=== PATIENT | female | born 1950 | race African-American/Black ===

== ENCOUNTER 2021-11-18 20:46 | Observation (INO) | payer MEDICARE, MEDICAID, SELFPAY ==
[2021-11-18] VITALS (7 sets, daily range): BP systolic 130–173; BP diastolic 80–89; PULSE 73–88; RESP 16; TEMP 36.8; O2SAT 98–100; BMI 37.1
--- NOTE | 2021-11-18 20:48 | ECG_ITS ---
APPROVED REPORT Exam: Resting ECG HR:73 bpm ECG Measurements Heart Rate 73 AXES NH 178 P 49 QRSd 96 QRS -27 QT 400 T 47 QTc 426 Conclusion SINUS RHYTHM WITH OCCASIONAL VENTRICULAR PREMATURE COMPLEXES BORDERLINE LEFT AXIS DEVIATION [QRS AXIS < -20] BORDERLINE ECG UNCONFIRMED REPORT Electronically signed by : Aguilar Hatch MD 11/19/2021 20:36:43
--- NOTE | 2021-11-18 20:55 | XR_ITS ---
PROCEDURE INFORMATION: Exam: XR Chest Exam date and time: 11/18/2021 9:29 PM Age: 71 years old Clinical indication: Shortness of breath; Additional info: SOA TECHNIQUE: Imaging protocol: Radiologic exam of the chest. Views: 1 view. COMPARISON: No relevant prior studies available. FINDINGS: Lungs: Limited inspiration and penetration of the chest with obese body habitus. No consolidation. No evidence of pulmonary vascular congestion. There is a 9 mm calcified granuloma within the peripheral aspect of the left mid lung field. Pleural spaces: Unremarkable. No pleural effusion. No pneumothorax. Heart/Mediastinum: No cardiomegaly. Atheromatous calcification of the thoracic aorta. The superior mediastinum is not widened. 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 Prominent narrowing of the acromioclavicular joint spaces. There are degenerative changes of the thoracic spine. IMPRESSION: No acute intrathoracic disease.
[2021-11-18 21:21] LABS: Microscopic, Urine URINE MICROSCOPIC (MICROSCOPIC)
--- NOTE | 2021-11-18 21:26 | PC.NURSE ---
speaking with Dr. Feliciano.
--- NOTE | 2021-11-18 21:28 | PC.NURSE ---
Dr. Lan s/w Dr. Feliciano
[2021-11-18 21:29] LABS: Appearance,Urine CLEAR (Clear); Bilirubin,Urine Negative (Negative); Blood, Urine TRACE-I (Negative); Color,Urine YELLOW (Yellow); Glucose,Urine (UA) Negative (Negative); Ketones,Urine Negative (Negative); Leukocyte Esterase,Urine Negative (Negative); Nitrate,Urine Negative (Negative); Protein,Urine Negative (Negative); Specific Gravity, Urine <= 1.005 (1.005-1.030); Urobilinogen,Urine 0.2 EU/dl (0.2)
[2021-11-18 21:33] LABS: WBC,Urine Occasional #/hpf (0-3)
[2021-11-18 21:46] LABS: Basophils % 0.5 % (0.1-2.0); Eosinophils # 0.1 K/mm3 (0.0-0.4); Hematocrit 44.3 % (37.0-47.0); Hemoglobin 13.6 g/dL (12.2-16.2); Lymphocytes # 1.1 K/mm3 (0.7-4.5); Lymphocytes % 13.1 % (10-50); Mean Corpuscular HGB Conc 30.7 g/dL (31.8-35.4); Mean Corpuscular Hemoglobin 27.7 pg (27.0-31.2); Mean Corpuscular Volume 90.1 fl (81-99); Mean Platelet Volume 8.9 fl (7.4-10.4); Monocytes # 0.2 K/mm3 (0.1-1.0); Monocytes % 2.4 % (1.7-9.3); Platelet Count 241 K/mm3 (142-424); Red Blood Count 4.91 M/mm3 (4.20-5.40); Red Cell Distribution Width 14.5 % (11.5-17.5); White Blood Count 8.4 K/mm3 (4.8-10.8)
[2021-11-18 21:48] LABS: Chloride 107 mmol/L (98-107); Potassium 4.4 mmoL/L (3.5-5.1); Sodium 139 mmol/L (136-145)
--- NOTE | 2021-11-18 21:48 | PC.NURSE ---
Rounded on pt at this time. Daughter at bedside. Updated them on POC. Assisted pt to use BSC. Pt placed back in bed and resp arrived to administer breathing treatment. Pt has no other needs.
[2021-11-18 21:50] LABS: Blood Urea Nitrogen 21 mg/dl (7-17)
[2021-11-18 21:51] LABS: Alanine Aminotransferase 90 U/L (12-78); Albumin Level 4.4 g/dl (3.5-5.0); Alkaline Phosphatase 97 U/L (38-126); Anion Gap 14.4 mEq/L (5-15); Aspartate Amino Transferase 90 U/L (14-36); Calcium 9.4 mg/dl (8.4-10.2); Carbon Dioxide 22 mmol/L (22.0-30.0); Creatinine Clearance Estimated 83 mL/min (50-200); Estimated Glomerular Filt Rate 54 ml/min (>60); GFR (African American) 66 ML/MIN (>60); Glucose 147 mg/dl (74-100); Total Protein,Serum 7.8 g/dl (6.3-8.2)
[2021-11-18 21:52] LABS: Activated Partial Thrombo Time 26.5 seconds (22.8-30.6); INR 1.01 (0.9-1.1); Magnesium 1.8 mg/dl (1.6-2.3); Prothrombin Time 11.4 seconds (10.1-12.5)
[2021-11-18 21:53] LABS: Bilirubin,Direct < 0.1 mg/dl (0.0-0.4); Bilirubin,Total < 0.1 mg/dl (0.2-1.3)
--- NOTE | 2021-11-18 21:54 | HMH.EDGENADL ---
ED Disposition Clinical Impression: New onset a-fib, COPD exacerbation Disposition: Admitted As Inpatient Condition on Discharge: Good - Critical Care Critical Care Time: No Attestation: On 11/18/21, the high probability of a clinically significant, sudden or life threatening deterioration of the following system(s) required my full and direct attention, intervention and personal management. The time I documented below is in addition to time spent performing reported procedures but includes the following listed in this critical care notation. Medical Decision Making - Watson Inquiry Pt receiving controlled substance: No Vital Signs: 11/18/21 20:46 11/18/21 21:30 11/18/21 22:00 Temperature 98.3 F Temperature Source Oral Pulse Rate 81 78 Pulse Rate [Right] 73 Respiratory Rate 16 Blood Pressure 152/80 H 171/88 H Blood Pressure [Right Arm] 130/89 Blood Pressure Mean [Right Arm] 102 Blood Pressure Source Blood Pressure Source [Right Arm] Automatic Cuff Blood Pressure Position Blood Pressure Position [Right Arm] Sitting 02 Sat by Pulse Oximetry 98 100 99 Oxygen Delivery Method Room Air Room Air 11/18/21 22:23 11/18/21 22:24 11/18/21 23:00 Temperature Temperature Source Pulse Rate 88 86 87 Pulse Rate [Right] Respiratory Rate Blood Pressure 173/85 H Blood Pressure [Right Arm] Blood Pressure Mean [Right Arm] Blood Pressure Source Blood Pressure Source [Right Arm] Blood Pressure Position Blood Pressure Position [Right Arm] 02 Sat by Pulse Oximetry 100 Oxygen Delivery Method Room Air 11/18/21 23:30 11/19/21 01:07 Temperature 98.3 F Temperature Source Oral Pulse Rate 87 78 Pulse Rate [Right] Respiratory Rate 16 Blood Pressure 153/81 H 164/81 H Blood Pressure [Right Arm] Blood Pressure Mean [Right Arm] Blood Pressure Source Automatic Cuff Blood Pressure Source [Right Arm] Blood Pressure Position Sitting Blood Pressure Position [Right Arm] 02 Sat by Pulse Oximetry 98 Oxygen Delivery Method Room Air Room Air - Lab Data Lab Results 11/18/21 20:58: Urine Color Yellow, Urine Appearance Clear, Urine pH 6.0, Ur Specific [place] <= 1.005, Urine Protein Negative, Urine Glucose (UA) Negative, Urine Ketones Negative, Urine Blood Trace-i, Urine Nitrate Negative, Urine Bilirubin Negative, Urine Urobilinogen 0.2, Ur Leukocyte Esterase Negative, Urine RBC 3-5, Urine WBC Occasional 11/18/21 20:58: SARS-CoV-2 (PCR) Not detected, Influenza A Untype (PCR) Not detected, Influenza Type B (PCR) Not detected 11/18/21 21:08: WBC 8.4, RBC 4.91, Hgb 13.6, Hct 44.3, MCV 90.1, MCH 27.7, MCHC 30.7 L, RDW 14.5, Plt Count 241, MPV 8.9, Neut % (Auto) 83.0 H, Lymph % (Auto) 13.1, [place] % (Auto) 2.4, Eos % (Auto) 1.0, Baso % (Auto) 0.5, Neut # (Auto) 7.0, Lymph # (Auto) 1.1, [place] # (Auto) 0.2, Eos # (Auto) 0.1, Baso # (Auto) 0.0 11/18/21 21:08: PT 11.4, INR 1.01, APTT 26.5 11/18/21 21:08: Sodium 139, Potassium 4.4, Chloride 107, Carbon Dioxide 22, Anion Gap 14.4, BUN 21 H, Creatinine 1.00, Estimated Creat Clear 83, Estimated GFR 54 L, Est GFR ( Amer) 66, Glucose 147 H, Calcium 9.4, Magnesium 1.8, Total Bilirubin < 0.1 L, Direct Bilirubin < 0.1, Conjugated Bilirubin 0.0, Indirect Bilirubin 0.0, Unconjugated Bilirubin 0.0, AST 90 H, ALT 90 H, Alkaline Phosphatase 97, Troponin I < 0.01, Total Protein 7.8, Albumin 4.4 11/18/21 23:45: Troponin I 0.02 11/19/21 00:19: Lactate 1.3 Result diagrams: 11/18/21 21:08 11/18/21 21:08 Orders (Tests/Meds): ED MEDICATIONS Generic Name Dose Route Start Last Admin Trade Name Freq PRN Reason Stop Dose Admin Acetaminophen 650 mg 11/19/21 01:02 Acetaminophen 325mg Tab PO 12/19/21 01:01 Q4HP PRN Fever or Mild Pain Albuterol/Ipratropium 3 ml 11/19/21 01:02 Ipratropium/Albuterol 3 Ml [facility] 12/18/21 23:56 Q1H PRN Wheezing Docusate Sodium 100 mg 11/19/21 09:00 Docusate Sodium 100
[2021-11-18 22:03] LABS: Troponin I < 0.01 ng/ml (0.00-0.034)
--- NOTE | 2021-11-18 22:53 | PC.NURSE ---
Pt given warm blanket for comfort.
--- NOTE | 2021-11-18 23:05 | PC.NURSE ---
Dr. Reis pagejudy
--- NOTE | 2021-11-18 23:39 | INFXCTL.NOTE ---
Dr. Reis pagejudy
--- NOTE | 2021-11-18 23:40 | PC.NURSE ---
Dr. Reis pagejudy
--- NOTE | 2021-11-18 23:42 | PC.NURSE ---
speaking with Dr. Reis
[2021-11-18 23:46] LABS: Coronavirus 19, PCR Not Detected (NotDetected); Influenza A, PCR Not Detected (NotDetected); Influenza B, PCR Not Detected (NotDetected)
[2021-11-19] VITALS (10 sets, daily range): BP systolic 123–174; BP diastolic 51–81; PULSE 78–90; RESP 16–20; TEMP 36.8–37.2; O2SAT 93–98; BMI 37.0
[2021-11-19 00:11] LABS: Troponin I 0.02 ng/ml (0.00-0.034)
[2021-11-19 00:36] LABS: Lactic Acid 1.3 mmol/L (0.7-2.1)
--- NOTE | 2021-11-19 00:45 | PC.NURSE ---
Called report to Stacy. Updated family and pt
--- NOTE | 2021-11-19 01:11 | PC.NURSE ---
PT ARRIVED TO FLOOR VIA W/C FROM ED W/STAFF @ [id number]
[2021-11-19 03:33] LABS: Basophils % 0.7 % (0.1-2.0); Eosinophils # 0.1 K/mm3 (0.0-0.4); Hematocrit 41.2 % (37.0-47.0); Lymphocytes # 0.7 K/mm3 (0.7-4.5); Lymphocytes % 13.4 % (10-50); Mean Corpuscular HGB Conc 31.4 g/dL (31.8-35.4); Mean Corpuscular Hemoglobin 27.1 pg (27.0-31.2); Mean Corpuscular Volume 86.4 fl (81-99); Mean Platelet Volume 8.7 fl (7.4-10.4); Monocytes # 0.1 K/mm3 (0.1-1.0); Monocytes % 1.5 % (1.7-9.3); Neutrophils # 4.5 K/mm3 (1.8-7.8); Neutrophils % 82.4 % (37.0-80.0); Platelet Count 222 K/mm3 (142-424); Red Blood Count 4.78 M/mm3 (4.20-5.40); Red Cell Distribution Width 14.6 % (11.5-17.5); White Blood Count 5.5 K/mm3 (4.8-10.8)
[2021-11-19 03:40] LABS: Anion Gap 13.7 mEq/L (5-15); Blood Urea Nitrogen 16 mg/dl (7-17); Calcium 8.6 mg/dl (8.4-10.2); Carbon Dioxide 21 mmol/L (22.0-30.0); Chloride 108 mmol/L (98-107); Chol/HDL Ratio 2.9 (1-3.5); Cholesterol 135 mg/dl (140-200); Creatinine Clearance Estimated 83 mL/min (50-200); Estimated Glomerular Filt Rate 82 ml/min (>60); GFR (African American) 99 ML/MIN (>60); Glucose 166 mg/dl (74-100); HDL Cholesterol 47 mg/dl (40-60); Potassium 3.7 mmoL/L (3.5-5.1); Sodium 139 mmol/L (136-145); Triglycerides 50 mg/dl (30-150); VLDL Cholesterol 10 mg/dL (0-40)
[2021-11-19 03:52] LABS: Troponin I 0.03 ng/ml (0.00-0.034)
--- NOTE | 2021-11-19 04:48 | PC.NURSE ---
Pt is a new admit this shift for new onset afib and copd exacerbation. Pt does have SOA with minimal activity. Pt is on RA with O2 sat > 92%. Lung sounds - scattered expiratory wheezes, diminished bilaterally. Thus far during my shift pt has been sinus rhythm on telemetry. Pt using BSC with standby assist. Cardiology consult in the AM. No complaints or needs voiced by patient. Family at bedside. Call light in reach.
--- NOTE | 2021-11-19 07:58 | HMH.HP ---
*Admission Date: 11/18/21 <Bailee Curtis - 11/19/21 08:11> *Chief complaint: Shortness of breath <Bailee Curtis - 11/19/21 08:11> *History of present illness: HPI narrative: Ms Hurst is a 71-year-old female with a history of COPD, hypertension, CAD, and breast cancer who presented to emergency department as a transfer from [facility] for evaluation of shortness of air. Patient reports that since yesterday, she has been feeling short of air and weak. She states that she had noted resolve wheezing, and she did have some improvement at home with her inhalers, but this was different. She went to outside hospital, where she was noted to be bradycardic with slow atrial fibrillation. She also was noted to be wheezing, for which she was given nebulizer treatments and steroids. She states that this slightly improved her symptoms. Patient underwent CT PE at outside hospital that was negative for any pulmonary emboli or other abnormalities. BNP was not significantly needed, and high-sensitivity troponin was within acceptable limits for outside hospital. Was noted to be mildly hyperkalemic. Given bradycardia, atrial fibrillation, and concern that this is contributing to her symptoms, outside hospital ER physician called and spoke with Dr. Feliciano who recommended transfer here for possible pacemaker placement. Patient denies any other concerns, such as fevers, chills, chest pain, cough, congestion, abdominal pain, nausea, vomiting, changes in bowel movements, dysuria, hematuria, rashes, or swelling. She states that her ankles are always swollen, but there is nothing new. Of note, she does complain of some mild aching left-sided low back pain radiating around her side, which she attributes to lifting a heavy case of water multiple times yesterday after going to the store. The patient is clinically well-appearing on physical exam with normal oxygen station on room air. She has normal heart rate and regular rhythm. Will administer another DuoNeb treatment. EKG was obtained that demonstrated sinus rhythm with PVCs. No acute ST changes concerning for ischemia or any changes associated with hyperkalemia noted. Will obtain work-up to reassess including CBC, CMP, troponin, coags, magnesium, and chest x-ray. I called and touched base with Dr. Feliciano who recommended admission for continued observation and further cardiac work-up. On reassessment, the patient is resting comfortably and remains in sinus rhythm. She is breathing much better after nebulizer treatments. Given concern for COPD exacerbation, methylprednisolone was continued. Labs do not demonstrate any concerning abnormalities at this time. Potassium within normal limits. Given new onset atrial fibrillation and COPD exacerbation, I spoke with Dr. Reis regarding potential admission. He recommended initiating the patient on antibiotics and adding on lactate and blood cultures. These were ordered and are pending at this time. The patient was admitted in stable condition. The above is per ER documentation. In the emergency room patient received Tylenol, DuoNeb treatment,Docusate,Lovenox, Zithromax, Rocephin, ibuprofen, Solu-Medrol 125 mg IV, Zofran, and Protonix. This a.m. patient states she feels much better. She feels her breathing is good. She has been out of bed to the bathroom and bedside commode and states she did well. She continues to deny any chest pain. She does not feel her heart palpate or skip beats. Laboratory data this morning CBC with a white blood cell count of 5500 hemoglobin of 13 and hematocrit 41.2. Blood chemistries show sodium of 139 potassium of 3.7. Renal function is normal. Lactate is normal. Eyes are normal x3. Liver function studies are noted to be elevated with an AST of 90 and ALT of 90.Chest x-ray showed no acute intrathoracic disease. <Bailee Curtis - 11/19/21 09:02> [facility] History Medical History: Reports:: Atrial Fibrillation (NEW ONSET), Cancer
--- NOTE | 2021-11-19 08:04 | HMH.PHAINT ---
home medication list verified using list from [facility]
--- NOTE | 2021-11-19 08:14 | P.CONPHA_ITS ---
[facility] Pharmacy VTE Monitoring - Patient Demographics Admission date: 11/19/21 Report Date: 11/19/21 Time: 08:14 Allergies/Adverse Reactions: Patient Allergies crab Allergy (Severe, Verified 11/19/21 07:58) Difficulty Breathing Fish Containing Products Allergy (Severe, Verified 11/19/21 07:58) Difficulty Breathing fish derived Allergy (Severe, Verified 11/19/21 07:58) Difficulty Breathing mussels Allergy (Severe, Verified 11/19/21 07:58) Difficulty Breathing oyster extract Allergy (Severe, Verified 11/19/21 07:58) Difficulty Breathing shrimp Allergy (Severe, Verified 11/19/21 07:58) Difficulty Breathing strawberry Allergy (Severe, Verified 11/19/21 03:29) Difficulty Breathing Height: 1.68 m Weight: 104.496 kg Patient Problems: Current Active Problems New onset a-fib (Acute) COPD exacerbation (Acute) - VTE Risk Labs: VTE Related Lab Results Hgb 13.0 g/dL (12.2-16.2) 11/19/21 03:15 Hct 41.2 % (37.0-47.0) 11/19/21 03:15 Plt Count 222 K/mm3 (142-424) 11/19/21 03:15 PT 11.4 seconds (10.1-12.5) 11/18/21 21:08 INR 1.01 (0.9-1.1) 11/18/21 21:08 APTT 26.5 seconds (22.8-30.6) 11/18/21 21:08 BUN 16 mg/dl (7-17) 11/19/21 03:15 Creatinine 0.70 mg/dl (0.52-1.04) D 11/19/21 03:15 Estimated Creat Clear 83 mL/min (50-200) 11/19/21 03:15 Was VTE Risk Assessment Performed: Yes VTE Score: 5 VTE Risk Level: Low Risk Clinical Trial Participant: No - Prophylaxis VTE Prophylaxis Ordered?: Yes Types of VTE Prophylaxis: TEDS Knee High, Pharmacological Pharmacologic Type: Enoxaparin
--- NOTE | 2021-11-19 10:40 | CA_ITS ---
APPROVED REPORT EXAM: Comprehensive 2D, Doppler, and color-flow Echocardiogram Otolaryngology Nurse: Mady Palmer CRT Ht: 5 ft 6 in Wt: 230lbs BSA: 2.12 BP: 157/73 mmHg Indications: COPD, Murmur, Shortness of Breath, Atrial Fibrillation, CAD 2D Dimensions LVOT 1.91 cm (M/F) 1.5-2.5 LA Volume 34.80 mL LA Volume Index 16.40 mL/m2 (M/F) 16-34 M-Mode Dimensions RVDd 2.56 cm (0.9-2.6) LA Diam 4.59 cm (1.9-4.0) LVDd 4.96 cm (3.5-5.7) Ao Diam 3.87 cm (2.0-3.7) LVDs 3.09 cm (3.5-5.7) IVSd 1.38 cm (0.6-1.1) PWd 0.93 cm (0.6-1.1) EF (Teich) 67.60% FS 37.70% EDV (Teich) 116.10 mL TAPSE 3.19 (<1.7) ESV (Teich) 37.60 mL LV Diastology E Decel Time 150.00 (160-240 msec) E/A Ratio 0.66 MED E' 8.40 (< 7 cm/sec) MED A' 17.50 cm/s E'/MED E' Ratio 9.76 (>14) LAT E' 9.50 (<10 cm/sec) LAT A' 16.40 cm/s E/LAT E' Ratio 8.63 (>14) Aortic Valve LVOT Max 174.00 (70-110 cm/s) LVOT VTI 36.10 cm AoV Peak Kel. 182.00 (50-130 cm/s) AO Peak GR. 13.30 mmHg AO Mean GR. 7.50 (<5 mmHg) AO VTI 36.30 (18-25 cm) PENELOPE (VTI) 2.85 (2.5-4.5 cm2) Mitral Valve MV E Max Kel. 82.00 (40-130 cm/s) MV A Velocity 125.00 (40-130 cm/s) E/A Ratio 0.66 MV Decel. Time 150.00 (160-240 ms) MV PHT 44.00 ms Pulmonary Valve PV Peak Velocity 98.00 (50-150 cm/s) Tricuspid Valve TR P. Velocity 256.00 cm/s RAP Estimate 10.00 mmHg RVSP 36.30 mmHg Left Ventricle Left atrium is mildly enlarged, left ventricle is normal size mild concentric left ventricular hypertrophy, estimated ejection fraction 55% with no regional wall motion abnormality, grade 1 diastolic dysfunction seen without tissue Doppler evidence of raise left atrial pressure. Right Ventricle Atrium and right ventricle are mildly enlarged with normal contractility. Aortic Valve Aortic valve is minimally thickened and fibrosed there is no aortic stenosis or aortic insufficiency. Mitral Valve Mitral valve grossly normal, there is trace mitral regurgitation. Tricuspid Valve Tricuspid valve grossly normal, there is trace tricuspid regurgitation, tricuspid regurgitation jet velocity is inadequate for calculation of the right ventricular systolic pressure. Pulmonic Valve Pulmonic valve is poorly visualized. Great Vessels Aortic root is normal size. Inferior vena cava is mildly dilated without significant inspiratory collapse. Pericardium No significant pericardial effusion noted. Conclusion 1. Mild biatrial enlargement, normal left ventricular size, mild concentric left ventricular hypertrophy, estimated ejection fraction 55% with no regional wall motion abnormality, grade 1 diastolic dysfunction seen without tissue Doppler evidence of raise left atrial pressure. 2. Mildly enlarged right ventricle with normal contractility. 3. Trace mitral valve tricuspid valve regurgitation. 4. No significant pericardial effusion noted. 5. Inferior vena cava is mildly dilated without significant inspiratory collapse. Electronically signed by : El Norton MD 11/19/2021 19:13:50
--- NOTE | 2021-11-19 11:04 | HMH.CNCARD ---
History of Present Illness Consult date: 11/19/21 Requesting physician: Ronald Reis Consult reason: shortness of breath Chief complaint: soa History of present illness: This is a 71-year-old black female who presented to the emergency department at [facility] for evaluation due to shortness of breath. The patient states that she woke up on Friday feeling really short of breath but did improve throughout the day and then on Friday her shortness of breath significantly worsened. She states that this was worse with exertion and improved with rest but was not going away even when resting. It was associated with wheezing and significant weakness. The patient states that she was using inhalers at home but her shortness of breath and wheezing were not improving. She went to [facility] emergency department and was found to have atrial fibrillation with a slow response. Dr. Feliciano was contacted and the patient was transferred here to [facility]. Since arriving at [facility] the patient has been in sinus rhythm with a rate in the 80s and 90s. This morning she denies any chest pain or pressure. She states her shortness of breath has significantly improved. She states that she is still somewhat short of breath with exertion but this is much better than it was. She denies any lower extremity edema. She denies any fever, chills, nausea, vomiting, diarrhea, PND or orthopnea. The patient was slightly hyperkalemic at [facility]. She reports that she takes potassium replacement due to hypokalemia in the past. She reports that she has 2 brothers who have from MIs. She denies a personal history of coronary artery disease or stroke. She states that she does have high blood pressure and takes multiple medications for this. The patient reports that she has been very unhappy with her primary care that she is receiving and [facility] and is looking to transfer her care here to [facility]. [facility] History I have reviewed the patient's past medical history: Yes Medical History: Reports:: Atrial Fibrillation (NEW ONSET), Cancer, Chronic Obstructive Pulmonary Disease (COPD), Coronary Artery Disease, Heart Murmur, Hyperlipidemia, Hypertension Denies:: Diabetes Mellitus Type 1, Diabetes Mellitus Type 2, MRSA *Have you ever received a pneumonia vaccine?: Yes *Have you received a flu vaccine this season?: Yes Other Medical History: Reports: Arthritis, Cataracts Laterality Cases: Left: Mastectomy, Bilateral: Arthroscopy Shoulder, Total Knee Replacement Other Surgeries: Yes: Appendectomy, Hysterectomy-Total, Other Amputation: No Fractures: No - *Social History Last grade of school completed: High school graduate Smoking Status: Former smoker Tobacco Type: cigarettes #Yrs smoked (if former smoker): 46 Alcohol Intake: current Alcohol Intake Frequency:: a few times a week *Occupational Status:: retired, disabled Housing: house Household Members: none *Travel in the last 8 weeks: None Family Hx:: Cancer, Heart Attack Meds Home Medications Medication Instructions Recorded Confirmed Type Albuterol Sulfate [Albuterol 1 puff IH Q4HP PRN 11/19/21 11/19/21 History Sulfate Hfa] Alendronate Sodium [Alendronate 35 mg PO WEEKLY 11/19/21 11/19/21 History 35mg Tablet] Amlodipine Besylate 5 mg PO DAILY 11/19/21 11/19/21 History Aspirin [Low Dose Aspirin EC] 81 mg PO DAILY 11/19/21 11/19/21 History Calcium Carbonate/Vitamin D3 1 tab PO DAILY 11/19/21 11/19/21 History [Calcium 600-Vit D3 200 Tablet] Fluticasone/Salmeterol [Advair 1 puff IH BID 11/19/21 11/19/21 History 100/50mcg diskus] Hydralazine HCl [Hydralazine HCl 25 mg PO BID 11/19/21 11/19/21 History 25mg Tablet] Potassium Chloride [Klor-con 20 20 meq PO TID 11/19/21 11/19/21 History mEq tablet] Simvastatin 40 mg PO HS 11/19/21 11/19/21 History carvediloL [Carvedilol 25mg Tab] 25 mg PO BID 11/19/21 11/19/21 History di
--- NOTE | 2021-11-19 19:30 | PC.NURSE ---
Pt a/o x 4. Did c/o of moran this shift, prn tylenol given. Have educated on meds given per mar this shift. VSS. NAD. Family member at bedside. CB in reach. No changes since prior assessment noted. Pt has been sinus rhythm/sinus arrhythmia this shift.
[2021-11-20 01:28] LABS: POC Glucose,Bedside 119 (70-110)
[2021-11-20 01:28] LABS: POC Glucose,Bedside 143 (70-110)
[2021-11-20 01:28] LABS: POC Glucose,Bedside 140 (70-110)
[2021-11-20 01:28] LABS: POC Glucose,Bedside 165 (70-110)
[2021-11-20 03:58] VITALS: BP 134/55; PULSE 72; RESP 16; TEMP 36.9; O2SAT 98
[2021-11-20 04:00] VITALS: PULSE 80
[2021-11-20 05:00] VITALS: PULSE 80
--- NOTE | 2021-11-20 05:09 | PC.NURSE ---
No acute changes. Pt c/o upset stomach after receiving Rocephin. PRN Zofran given per JUN. Pt tolerating RA well with sats >93%. Pt able to ambulate to BR with standby assist. Pt has been NSR with occ. PVC on tele t/o shift. HR WNL t/o shift. Call light within reach. Daughter at bedside.
[2021-11-20 06:00] VITALS: BMI 37.1
[2021-11-20 06:44] LABS: Basophils % 0.4 % (0.1-2.0); Chloride 106 mmol/L (98-107); Eosinophils # 0.1 K/mm3 (0.0-0.4); Eosinophils % 1.4 % (0.1-12.0); Hemoglobin 12.4 g/dL (12.2-16.2); Lymphocytes # 0.9 K/mm3 (0.7-4.5); Lymphocytes % 10.4 % (10-50); Mean Corpuscular Hemoglobin 27.5 pg (27.0-31.2); Mean Corpuscular Volume 88.7 fl (81-99); Mean Platelet Volume 8.9 fl (7.4-10.4); Monocytes # 0.2 K/mm3 (0.1-1.0); Monocytes % 2.9 % (1.7-9.3); Neutrophils # 7.1 K/mm3 (1.8-7.8); Platelet Count 160 K/mm3 (142-424); Red Cell Distribution Width 14.5 % (11.5-17.5); White Blood Count 8.3 K/mm3 (4.8-10.8)
[2021-11-20 06:45] LABS: Potassium 3.1 mmoL/L (3.5-5.1); Sodium 138 mmol/L (136-145)
[2021-11-20 06:47] LABS: Blood Urea Nitrogen 15 mg/dl (7-17); Creatinine Clearance Estimated 83 mL/min (50-200); Estimated Glomerular Filt Rate 98 ml/min (>60); GFR (African American) 119 ML/MIN (>60)
[2021-11-20 06:48] LABS: Anion Gap 6.1 mEq/L (5-15); Calcium 8.1 mg/dl (8.4-10.2); Carbon Dioxide 29 mmol/L (22.0-30.0); Glucose 147 mg/dl (74-100); MANUAL DIFFERENTIAL MANUAL DIFFERENTIAL (MANUAL DIFF)
[2021-11-20 07:27] LABS: Hemoglobin A1C 5.5 % (4.0-6.0)
--- NOTE | 2021-11-20 07:45 | HMH.ACPN2 ---
<Bailee Curtis - Last Filed: 11/20/21 07:45> Internal Medicine - PN: Subj *Date: 11/20/21 *Time: 07:45 Interval history: Patient feels much better today and is ready to go home. She did sleep last night. She is eating well without difficulties. Daughter has stayed with her throughout her stay. She is voiding QS. She ambulates without difficulty. She states she is not short of breath and she has no chest pain. Morning labs show CBC with a hemoglobin of 12.4 hematocrit of 40 and white blood cell count of 8300. Blood chemistries show sodium of 138 and potassium of 3.1. Renal function is normal. A1c is 5.5. Echocardiogram reveals the following : Conclusion 1. Mild biatrial enlargement, normal left ventricular size, mild concentric left ventricular hypertrophy, estimated ejection fraction 55% with no regional wall motion abnormality, grade 1 diastolic dysfunction seen without tissue Doppler evidence of raise left atrial pressure. 2. Mildly enlarged right ventricle with normal contractility. 3. Trace mitral valve tricuspid valve regurgitation. 4. No significant pericardial effusion noted. 5. Inferior vena cava is mildly dilated without significant inspiratory collapse. Aortic Valve Aortic valve is minimally thickened and fibrosed there is no aortic stenosis or aortic insufficiency. Cardiology did see the patient with the following assessment/plan: Assessment and Plan for all problems:: Plan: 1. The patient was admitted to the hospital from [facility] emergency department for paroxysmal atrial fibrillation with a slow ventricular response. By the time the patient got here to [facility] she was back in sinus rhythm with a rate in the 80s and 90s. The patient takes oral diltiazem and carvedilol at home. We will continue these medications at this time for rate control. The patient has not had any of her medications since 6 AM yesterday morning. We will get these medications restarted at this time. 2. Given her paroxysmal atrial fibrillation the patient will need to be on long-term anticoagulation. I have had a long discussion with the patient and her daughter about long-term anticoagulation to prevent strokes because due to the paroxysmal atrial fibrillation she had is increased risk for having a stroke. The patient and her daughter have verbalized understanding. We will start her on Xarelto 20 mg p.o. with supper for anticoagulation. The patient and her daughter have been educated to notify healthcare provider with any signs of bleeding as soon as possible. They have verbalized understanding. 3. The patient is listed as taking amlodipine and diltiazem. These are both calcium channel blockers and should not be taken at the same time. We will stop amlodipine. 4. Start hydrochlorothiazide 25 mg p.o. daily for better blood pressure control. 5. The patient is also taking hydralazine for blood pressure control. Our goal will be to wean the patient off of this once she has achieved good control of her blood pressure. 6. Her LDL goal is less than 100. Her LDL is currently 60. On a statin. 7. The patient denies chest pain or pressure. She is ruled out for an LA. No plans for invasive cardiac testing at this time. 8. The patient does have a family history of ischemic heart disease with 2 brothers who from MIs. She would benefit from an outpatient ischemic evaluation once she is discharged from the hospital and improved from her COPD exacerbation. 9. The patient does have COPD. Will defer management of this to her primary care team. 10. We will get an echocardiogram to evaluate her LV function. 11. The patient was hyperkalemic with a potassium of 5.9 while she was at [facility]. This is likely the cause of her slow response while she was in atrial fibrillation. Her potassium replacement has been stopped at this time. 12. Further recommendations were made pending the patient's response to treatment. E
[2021-11-20 07:58] LABS: Lymphocytes % 11 % (10-50); Monocytes % 3 % (2-9); Neutrophils % 86 % (42-76); Platelet Estimate Normal; RBC Morphology Normal; Total Cells Counted 100
[2021-11-20 08:00] VITALS: BP 143/61; PULSE 76; RESP 19; TEMP 36.4; O2SAT 96; O2SAT 97
--- NOTE | 2021-11-20 09:08 | HMH.PNCARD ---
Subjective Date: 11/20/21 Time: 08:00 Principal diagnosis: PAF, HTN Interval history: This is a 71-year-old black female who presented to the emergency department at [facility] for evaluation of shortness of breath. The patient has been treated for COPD exacerbation. She was also found to be in paroxysmal atrial fibrillation while at [facility] but converted to sinus rhythm by the time she got here to [facility]. She is remained in sinus rhythm since that time. She has had no evidence of bradycardia. No plans for permanent pacemaker. This morning she denies any chest pain or pressure. She states her shortness of breath is significantly improved and she is feeling much better. She denies any edema. She denies any fever, chills, nausea, vomiting, diarrhea, PND or orthopnea. Exam Vital signs and Labs for Last 24 Hours: Temp Pulse Resp BP Pulse Ox 97.6 F 76 19 143/61 H 96 11/20/21 08:00 11/20/21 08:00 11/20/21 08:00 11/20/21 08:00 11/20/21 08:00 Laboratory Results - last 24 hr 11/19/21 06:42: POC Glucose 143 H 11/19/21 11:20: POC Glucose 140 H 11/19/21 16:39: POC Glucose 119 H 11/19/21 23:00: POC Glucose 165 H 11/20/21 06:17: Sodium 138, Potassium 3.1 L, Chloride 106, Carbon Dioxide 29, Anion Gap 6.1, BUN 15, Creatinine 0.60, Estimated Creat Clear 83, Estimated GFR 98, Est GFR ( Amer) 119 D, Glucose 147 H, Calcium 8.1 L 11/20/21 06:17: WBC 8.3 D, RBC 4.50, Hgb 12.4, Hct 40.0, MCV 88.7, MCH 27.5, MCHC 31.0 L, RDW 14.5, Plt Count 160 D, MPV 8.9, Neut % (Auto) 85.0 H, Lymph % (Auto) 10.4, [place] % (Auto) 2.9, Eos % (Auto) 1.4, Baso % (Auto) 0.4, Neut # (Auto) 7.1, Lymph # (Auto) 0.9, [place] # (Auto) 0.2, Eos # (Auto) 0.1, Baso # (Auto) 0.0, Total Counted 100, Neutrophils % (Manual) 86 H, Lymphocytes % (Manual) 11, Monocytes % (Manual) 3, Platelet Estimate Normal, RBC Morphology Normal 11/20/21 06:17: Hemoglobin A1c 5.5 I & O for Last 24 hours: Intake & Output 11/17/21 11/18/21 11/19/21 11/20/21 23:59 23:59 23:59 23:59 Intake Total 840 / 840 660 / 660 Output Total 0 / 0 Balance 840 / 840 660 / 660 Weight 230 lb 230 lb 6 oz 231 lb 3.2 oz Narrative: Telemetry strip is sinus rhythm with a rate of 84. Echocardiogram shows: 1. Mild biatrial enlargement, normal left ventricular size, mild concentric left ventricular hypertrophy, estimated ejection fraction 55% with no regional wall motion abnormality, grade 1 diastolic dysfunction seen without tissue Doppler evidence of raise left atrial pressure. 2. Mildly enlarged right ventricle with normal contractility. 3. Trace mitral valve tricuspid valve regurgitation. 4. No significant pericardial effusion noted. 5. Inferior vena cava is mildly dilated without significant inspiratory collapse. - Constitutional no acute distress, obese - *Routine HEENT Exam Head: Present: normocephalic, atraumatic Eye: Present: EOMI, PERRL ENT: Present: mucous membranes moist - *Routine Neck Exam Present: supple, full ROM, normal carotid upstroke. Absent: JVD, carotid bruit, lymphadenopathy - *Routine Respiratory Exam Present: CTA bilaterally - *Routine Cardiovascular Exam Present: RRR, Normal S1, Normal S2, murmur - *Routine Abdominal Exam Present: soft, normoactive bowel sounds. Absent: tenderness, distended - *Routine Extremities Exam Present: full ROM, pulses intact, normal capillary refill. Absent: cyanosis, clubbing, edema - *Routine Skin Exam Present: intact, warm. Absent: erythema, rash - *Routine Neurological Exam Present: alert, oriented X3, CN II-XII intact. Absent: sensory deficit, motor deficit - Routine Psychiatric Exam Present: normal affect, normal thought process Progress Note: A&P (1) Shortness of breath Status: Acute (2) COPD exacerbation Status: Acute (3) Hypertension Status: Chronic (4) Paroxysmal atrial fibrillation Status: Acute (5) Hyperlipidemia Status: C
--- NOTE | 2021-11-20 09:31 | HMH.PHAINT ---
DISCHARGE MEDICATION COUNSELING PROVIDED. DISCUSSED THE FOLLOWING CHANGES: -STOP TAKING THE AMLODIPINE AND HYDRALAZINE -START XARELTO (DAILY, BLOOD THINNER, BLEED/BRUISE RISK, BLEED LOCATION CHANGES APPEARANCE, BUMP HEAD = GO TO ER) -START HYDROCHLOROTHIAZIDE (DAILY, FOR BP, RECOMMEND TAKING IN THE MORNING, INCREASED URINE OUTPUT, DIZZINESS, LIGHTHEADEDNESS) PATIENT VERBALIZED NO QUESTIONS AT THIS TIME.
--- NOTE | 2021-11-22 08:43 | HMH.DCSUM ---
General - General Admission date:: 11/19/21 Discharge date: 11/20/21 HPI HPI: Ms Hurst is a 71-year-old female with a history of COPD, hypertension, CAD, and breast cancer who presented to emergency department as a transfer from [facility] for evaluation of shortness of air. Patient reports that since yesterday, she has been feeling short of air and weak. She states that she had noted resolve wheezing, and she did have some improvement at home with her inhalers, but this was different. She went to outside hospital, where she was noted to be bradycardic with slow atrial fibrillation. She also was noted to be wheezing, for which she was given nebulizer treatments and steroids. She states that this slightly improved her symptoms. Patient underwent CT PE at outside hospital that was negative for any pulmonary emboli or other abnormalities. BNP was not significantly needed, and high-sensitivity troponin was within acceptable limits for outside hospital. Was noted to be mildly hyperkalemic. Given bradycardia, atrial fibrillation, and concern that this is contributing to her symptoms, outside hospital ER physician called and spoke with Dr. Feliciano who recommended transfer here for possible pacemaker placement. Patient denies any other concerns, such as fevers, chills, chest pain, cough, congestion, abdominal pain, nausea, vomiting, changes in bowel movements, dysuria, hematuria, rashes, or swelling. She states that her ankles are always swollen, but there is nothing new. Of note, she does complain of some mild aching left-sided low back pain radiating around her side, which she attributes to lifting a heavy case of water multiple times yesterday after going to the store. The patient is clinically well-appearing on physical exam with normal oxygen station on room air. She has normal heart rate and regular rhythm. Will administer another DuoNeb treatment. EKG was obtained that demonstrated sinus rhythm with PVCs. No acute ST changes concerning for ischemia or any changes associated with hyperkalemia noted. Will obtain work-up to reassess including CBC, CMP, troponin, coags, magnesium, and chest x-ray. I called and touched base with Dr. Feliciano who recommended admission for continued observation and further cardiac work-up. On reassessment, the patient is resting comfortably and remains in sinus rhythm. She is breathing much better after nebulizer treatments. Given concern for COPD exacerbation, methylprednisolone was continued. Labs do not demonstrate any concerning abnormalities at this time. Potassium within normal limits. Given new onset atrial fibrillation and COPD exacerbation, I spoke with Dr. Reis regarding potential admission. He recommended initiating the patient on antibiotics and adding on lactate and blood cultures. These were ordered and are pending at this time. The patient was admitted in stable condition. The above is per ER documentation. In the emergency room patient received Tylenol, DuoNeb treatment,Docusate,Lovenox, Zithromax, Rocephin, ibuprofen, Solu-Medrol 125 mg IV, Zofran, and Protonix. This a.m. patient states she feels much better. She feels her breathing is good. She has been out of bed to the bathroom and bedside commode and states she did well. She continues to deny any chest pain. She does not feel her heart palpate or skip beats. Laboratory data this morning CBC with a white blood cell count of 5500 hemoglobin of 13 and hematocrit 41.2. Blood chemistries show sodium of 139 potassium of 3.7. Renal function is normal. Lactate is normal. Eyes are normal x3. Liver function studies are noted to be elevated with an AST of 90 and ALT of 90.Chest x-ray showed no acute intrathoracic disease. Hospital Course Hospital Course: The patient was started on Zithromax and Rocephin and cardiology was consulted. She was placed on a groundwater monitoring technician. She was in normal sinus rhythm with a heart rate between
--- NOTE | 2021-11-22 15:22 | CARE MANAGER ---
Attempted to contact the patient x 2 related to hospital discharge. No answer and VM box was full unable to leave message. SUDHIR Bettencourt
== END 2021-11-20 10:10 | disposition home or self-care (01) ==
LOC: ER 21:02 → 2ND 11-19 01:06
PROVIDERS: Nurse Practitioner Family; Admitting Provider Family Medicine; Emergency Provider Emergency Medicine; PCP Nurse Practitioner Family; Visit Provider Family Medicine
DX: I48.0 Paroxysmal atrial fibrillation (principal); J44.1 Chronic obstructive pulmonary disease with (acute) exacerbation; I10 Essential (primary) hypertension; I25.10 Atherosclerotic heart disease of native coronary artery without angina pectoris; E78.5 Hyperlipidemia, unspecified; Z87.891 Personal history of nicotine dependence; E87.5 Hyperkalemia; Z79.899 Other long term (current) drug therapy; Z20.822 Contact with and (suspected) exposure to COVID-19
CPT/HCPCS: G0378; 36415; 71045; 80048; 80061; 80076; 81001; 82962; 83036; 83605; 83735; 84484; 85007; 85025; 85610; 85730; 87040; 93005; 93306; 99285; C9803; J0456; J0696; J2405; U0003; U0005

== ENCOUNTER → 2021-11-29 06:38 | Outpatient (CLI) | payer MEDICARE, MEDICAID, SELFPAY ==
--- NOTE | 2021-11-29 | CA_ITS ---
APPROVED REPORT Exam: Pharmacologic Technologist: Joslyn Reaves, Ht: 5 ft 3 in Wt: 230 lbs BSA: 2.05 m2 HR: 53 bpm BP: 147/69 mmHg Rhythm: sinus katharina, slow R wave progression Medical History Medical History: HTN, Hyperlipidemia Medications: HCTZ,,,,, Carvedilol,,,,, Albuterol,,,,, Vit D3,,,,, Alendonate,,,,, PolyethYLENE,,,,, Potassium,,,,, Guaifenesin,,,,, RIvaROXABAN,,,,, Simvasatin,,,,, DilTAiazem,,,,, Cardiac Risk Factors: HTN, Hyperlipidemia, Smoking, FHX of CAD Stress Test Details Test: LEXISCAN HR Resting HR: 65 bpm Max Heart Rate (APMHR): 147.345574 bpm Max HR Achieved: 95 bpm Target HR (85% APMHR): 124.735825 bpm % of APMHR: 64.63 Recovery HR: 86 bpm BP Resting BP: 147/69 mmHg Max BP: 147/69 mmHg Recovery BP: 139.0/65.0 mmHg ECG Resting ECG: sinus katharina, slow R wave progression Clinical Exercise duration: 06:34 min Highest Stage Achieved: Exercise capacity: 1.0 METs Stress ECG Conclusion During lexiscan stress pt experinced mild SOA, no CP noted. Occasional PAC and PVC. !.5 second pause. No significant ST changes. Unremarkable lexiscan stress. Myoview images reported separately. Test Summary REST . . . . . . . Sitting REST 20:35 . . 65 . 147/ 69 . . Stage 1 01:00 . . 78 . . . . Stage 2 01:00 . . 87 . . . . Stage 3 01:00 . . 87 . 136/ 66 . . Stage 4 01:00 . . 87 . 145/ 67 . . Stage 4 02:00 . . 84 . 145/ 67 . . Stage 4 03:00 . . 84 . 139/ 65 . . Stage 4 03:34 . . 85 . 139/ 65 . Stop exercise at 06:34 RECOVERY 00:15 . . 89 . . . . Electronically signed by : El Norton MD 11/30/2021 09:23:58
--- NOTE | 2021-11-29 06:46 | NM_ITS ---
APPROVED REPORT Exam: Nuclear Stress Test Indication: short of breath..fatigue Patient Location: Outpatient Stress Tech: Joslyn MANJARREZ Tech:Sarah Ramsay SHAYYJanusz RT(R)(N) Ht: 5 ft 6 in Wt: 230 lbs Bra Size: 40c HR: 65 bpm BP: 147/69 mmHg BSA: 2.12 m2 TID: 1.08 BMI: 37.1 History: short of breath..fatigue Procedure: Patient received a 0.4 mg of intravenous Lexiscan, resting heart rate 65 bpm, resting blood pressure 147/69 mmHg, with Lexiscan maximum heart rate achived was 95 bpm which is Less than 85 % of the maximum predicted heart rate and blood pressure was 147/69 mmHg. With Lexiscan, patient denied any complaint of chest pain. Electrocardiogram Resting electrocardiogram shows sinus rhythm, with Lexiscan there is less than 1.[address] segment depression noted from the baseline EKG. The EKG portion of the Lexiscan is nondiagnostic. Cardiac Stress and Resting SPECT Images: Cardiac Stress and Resting SPECT images were obtained using technetium 99m Myoview 31.5 mCi stress and 10.62 mCi at rest. Gated SPECT for analysis of segmental wall motion and calculation of the ejection fraction also done. Cardiac stress and rest SPECT images show fixed defect involving the anteroseptal and apical wall consistent with area of myocardial scarring without significant courtney-infarct ischemia, computer derived ejection fraction is 52% with moderate anteroseptal and apical wall hypokinesis, right ventricle is normal size and contractility. Conclusion: 1. The EKG portion of the Lexiscan is nondiagnostic. 2. No scintigraphic evidence of reversible ischemia seen, a fixed defect in the anteroseptal and apical wall is likely secondary to myocardial scarring, computer derived ejection fraction is 52% with segmental wall motion abnormality described above, right ventricle is normal size and contractility. 3. Abnormal Lexiscan Myoview study. Electronically signed by : El Norton MD 11/30/2021 10:24:01
== END ==
PROVIDERS: PCP Family Medicine; Visit Provider Physician Assistant
DX: E78.2 Mixed hyperlipidemia (principal); I10 Essential (primary) hypertension; I48.0 Paroxysmal atrial fibrillation; J44.1 Chronic obstructive pulmonary disease with (acute) exacerbation; R06.02 Shortness of breath; R94.31 Abnormal electrocardiogram [ECG] [EKG]; Z82.49 Family history of ischemic heart disease and other diseases of the circulatory system
CPT/HCPCS: 78452; 93017; A9502; J2785

== ENCOUNTER → 2021-12-11 08:28 | Outpatient (CLI) | payer MEDICARE, MEDICAID, SELFPAY ==
[2021-12-11 09:27] LABS: Basophils # 0.1 K/mm3 (0-0.2); Eosinophils # 0.4 K/mm3 (0.0-0.4); Eosinophils % 6.2 % (0.1-12.0); Hematocrit 43.5 % (37.0-47.0); Hemoglobin 12.9 g/dL (12.2-16.2); Lymphocytes # 1.2 K/mm3 (0.7-4.5); Mean Corpuscular HGB Conc 29.6 g/dL (31.8-35.4); Mean Corpuscular Hemoglobin 27.3 pg (27.0-31.2); Mean Corpuscular Volume 92.3 fl (81-99); Mean Platelet Volume 8.8 fl (7.4-10.4); Monocytes # 0.5 K/mm3 (0.1-1.0); Monocytes % 7.1 % (1.7-9.3); Neutrophils # 4.6 K/mm3 (1.8-7.8); Neutrophils % 67.6 % (37.0-80.0); Platelet Count 206 K/mm3 (142-424); Red Blood Count 4.71 M/mm3 (4.20-5.40); Red Cell Distribution Width 14.4 % (11.5-17.5); White Blood Count 6.8 K/mm3 (4.8-10.8)
[2021-12-11 09:58] LABS: Anion Gap 14.3 mEq/L (5-15); Blood Urea Nitrogen 9 mg/dl (7-17); Carbon Dioxide 23 mmol/L (22.0-30.0); Chloride 102 mmol/L (98-107); Potassium 4.3 mmoL/L (3.5-5.1); Sodium 135 mmol/L (136-145)
[2021-12-11 09:59] LABS: Calcium 9.7 mg/dl (8.4-10.2); Estimated Glomerular Filt Rate 61 ml/min (>60); GFR (African American) 74 ML/MIN (>60); Glucose 95 mg/dl (74-100)
== END ==
PROVIDERS: PCP Family Medicine; Visit Provider Nurse Practitioner
DX: E78.5 Hyperlipidemia, unspecified (principal); I10 Essential (primary) hypertension; I48.0 Paroxysmal atrial fibrillation; J44.1 Chronic obstructive pulmonary disease with (acute) exacerbation; R06.00 Dyspnea, unspecified; R06.02 Shortness of breath; R94.31 Abnormal electrocardiogram [ECG] [EKG]; Z82.49 Family history of ischemic heart disease and other diseases of the circulatory system; Z01.812 Encounter for preprocedural laboratory examination; Z20.822 Contact with and (suspected) exposure to COVID-19
CPT/HCPCS: 36415; 80048; 85025; C9803; U0003; U0005

== ENCOUNTER → 2021-12-13 08:36 | Day surgery (SDC) | payer MEDICARE, MEDICAID, SELFPAY ==
[2021-12-13] VITALS (11 sets, daily range): BP systolic 145–189; BP diastolic 67–80; PULSE 52–76; RESP 16–20; O2SAT 95–99; BMI 39.6
--- NOTE | 2021-12-13 | IR_ITS ---
APPROVED REPORT Patient Location: Outpatient PROCEDURES Left heart catheterization Left ventriculogram Selective coronary angiogram INDICATION Abnormal Myoview, Progressive angina pectoris Informed consent was obtained prior to the procedure. COMPLICATIONS None Estimated Blood Loss: Less than 10 mls TECHNIQUE One percent lidocaine used to anesthetize the right anterior aspect of the wrist. The right radial artery was accessed via the Seldinger technique. A 6 Sinhala sheath was placed in the right radial artery. 2.5 mg of verapamil, 800 mcg of nitroglycerin, 1mg Lidocaine and 5000 U Heparin were given through the arterial sheath. The papa catheter was also used to perform left heart catheterization, left ventriculogram and selective coronary angiogram. At the end of the procedure the sheath was removed good hemostasis was achieved using Traclet band, patient was transferred to the postop holding area in stable condition. ANGIOGRAPHIC RESULTS The left main artery Normal The left anterior descending artery Has proximal mid vessel 10 to 20% luminal regularities The circumflex artery Nondominant with proximal mid vessel 20 to 30% stenosis The right coronary artery Is a dominant vessel and has proximal 20% with mid vessel long 30 to 40% stenoses and distal 30% stenoses The RODRIGUEZ ventriculogram reveals Normal 65 The left ventricular end-diastolic pressure 25 mmHg IMPRESSION Mild to moderate coronary disease as described above Normal ejection fraction Elevated LVEDP consistent with diastolic dysfunction PLAN 1. Standard therapy for coronary artery disease with attention on risk factor modification 2. Treatment diastolic dysfunction 3. Avoidance of Pepsi and pop products Electronically signed by : Blayne Feliciano MD 12/13/2021 14:10:31
== END | disposition home or self-care (01) ==
PROVIDERS: PCP Family Medicine; Visit Provider Internal Medicine
DX: I25.10 Atherosclerotic heart disease of native coronary artery without angina pectoris (principal); R94.39 Abnormal result of other cardiovascular function study; I48.0 Paroxysmal atrial fibrillation; Z82.49 Family history of ischemic heart disease and other diseases of the circulatory system; I10 Essential (primary) hypertension; E78.5 Hyperlipidemia, unspecified; J44.9 Chronic obstructive pulmonary disease, unspecified; Z87.891 Personal history of nicotine dependence
CPT/HCPCS: 93458; 99152; C1725; C1769; J1644; Q9967

== ENCOUNTER → 2021-12-31 14:34 | Outpatient (CLI) | payer MEDICARE, MEDICAID, SELFPAY ==
[2021-12-31 15:51] LABS: Chloride 101 mmol/L (98-107); Potassium 3.9 mmoL/L (3.5-5.1); Sodium 139 mmol/L (136-145)
[2021-12-31 15:54] LABS: Anion Gap 15.9 mEq/L (5-15); Blood Urea Nitrogen 17 mg/dl (7-17); Calcium 8.8 mg/dl (8.4-10.2); Carbon Dioxide 26 mmol/L (22.0-30.0); Estimated Glomerular Filt Rate 61 ml/min (>60); GFR (African American) 74 ML/MIN (>60); Glucose 99 mg/dl (74-100); Magnesium 1.7 mg/dl (1.6-2.3)
[2021-12-31 16:34] LABS: Basophils # 0.1 K/mm3 (0-0.2); Basophils % 0.8 % (0.1-2.0); Eosinophils # 0.5 K/mm3 (0.0-0.4); Eosinophils % 6.3 % (0.1-12.0); Hematocrit 32.4 % (37.0-47.0); Hemoglobin 10.7 g/dL (12.2-16.2); Lymphocytes # 1.7 K/mm3 (0.7-4.5); Lymphocytes % 24.3 % (10-50); Mean Corpuscular HGB Conc 32.9 g/dL (31.8-35.4); Mean Corpuscular Hemoglobin 28.5 pg (27.0-31.2); Mean Corpuscular Volume 86.7 fl (81-99); Monocytes # 0.5 K/mm3 (0.1-1.0); Monocytes % 6.3 % (1.7-9.3); Neutrophils # 4.5 K/mm3 (1.8-7.8); Neutrophils % 62.2 % (37.0-80.0); Platelet Count 181 K/mm3 (142-424); Red Blood Count 3.74 M/mm3 (4.20-5.40); Red Cell Distribution Width 14.7 % (11.5-17.5); White Blood Count 7.2 K/mm3 (4.8-10.8)
== END ==
PROVIDERS: PCP Family Medicine; Visit Provider Nurse Practitioner
DX: E78.2 Mixed hyperlipidemia (principal); I10 Essential (primary) hypertension; I25.10 Atherosclerotic heart disease of native coronary artery without angina pectoris; I48.0 Paroxysmal atrial fibrillation; L29.9 Pruritus, unspecified; R19.5 Other fecal abnormalities
CPT/HCPCS: 36415; 80048; 83735; 85025

== ENCOUNTER 2022-02-13 11:02 | Observation (INO) | payer MEDICARE, MEDICAID, SELFPAY ==
[2022-02-13] VITALS (19 sets, daily range): BP systolic 98–139; BP diastolic 45–89; PULSE 42–71; RESP 12–20; TEMP 36.6–37.1; O2SAT 78–100; BMI 40.0; BMI 38.7
--- NOTE | 2022-02-13 11:14 | XR_ITS ---
FINAL REPORT CLINICAL HISTORY: palpitations COMPARISON: October 2021 FINDINGS: Cardiomegaly is noted. There is mild but stable pulmonary vascular congestion. The mediastinum is within normal limits. There is no acute cardiopulmonary process. There is no pleural effusion. There is no pneumothorax. There is postoperative change involving both shoulders. IMPRESSION: Cardiomegaly with mild pulmonary vascular congestion, stable. Reviewed, Interpreted and Dictated by Brain Gordon III, MD Transcribed by Bhavesh Campo Authenticated and [facility]
--- NOTE | 2022-02-13 11:15 | PC.NURSE ---
ED MD AT BEDSIDE FOR EVALUATION
--- NOTE | 2022-02-13 11:16 | HMH.EDGENADL ---
Discharge Plan Disposition Patient Disposition: Admitted As Inpatient Condition: Fair Clinical Impressions Clinical Impression: Symptomatic bradycardia Discharge ED Provider: Sherlyn Ornelas General Adult HPI General Chief complaint: Weakness Stated complaint: Light headed, nausea, upset stomach Time Seen by Provider: 02/13/22 11:04 History of Present Illness HPI narrative: 72-year-old female presenting to the emergency department with nausea, body aches, lightheadedness. Symptoms started this morning when she woke up. When she went to stand she felt very lightheaded. Had to hold onto furniture to steady herself. She does not have symptoms when sitting still. They are worse with any motion. She also has had generalized nausea, malaise, body aches, weakness. [place] well throughout the day yesterday. Eating and drinking normally. Follows with cardiology, Dr. Feliciano. Denies changes to her medications. Denies current headache, vision changes, speech difficulty, numbness, weakness, tingling in her arms or legs. No known sick contacts. No chest pain, palpitations, leg swelling. Related Data Home Medications Medication Instructions Recorded Confirmed albuterol sulfate 90 mcg/actuation 1 puff inhalation Q4HP PRN 11/19/21 02/13/22 aerosol inhaler Shortness Of Breath alendronate 35 mg tablet 35 mg PO WEEKLY Osteoporosis 11/19/21 02/13/22 aspirin 81 mg tablet,delayed 81 mg PO DAILY CAD 11/19/21 02/13/22 release calcium carbonate 600 mg-vitamin 1 tab PO DAILY Supplement 11/19/21 02/13/22 D3 5 mcg (200 unit) tablet carvedilol 25 mg tablet 25 mg PO BID Hypertension 11/19/21 02/13/22 diltiazem HCl 360 mg capsule,24 360 mg PO DAILY Hypertension 11/19/21 02/13/22 hr,extended release guaifenesin 600 mg tablet, 600 mg PO DAILY PRN Congestion 11/19/21 02/13/22 extended release 12 hr polyethylene glycol 3350 17 gram 1 packet PO DAILY PRN Constipation 11/19/21 02/13/22 oral powder packet potassium chloride 20 mEq 20 meq PO TID potassium replacement 11/19/21 02/13/22 tablet,extended release(part/cryst) simvastatin 40 mg tablet 40 mg PO HS hyperlipidemia 11/19/21 02/13/22 rivaroxaban 20 mg tablet 20 mg PO DAILY afib 12/13/21 02/13/22 triamterene 37.5 1 tab PO DAILY Hypertension 12/13/21 02/13/22 mg-hydrochlorothiazide 25 mg tablet (Maxzide-25mg) amlodipine 5 mg tablet 5 mg PO DAILY Hypertension 02/13/22 02/13/22 fluticasone 100 mcg-salmeterol 50 1 inh inhalation BID shortness of 02/13/22 02/13/22 mcg/dose blistr powdr for air/wheezing inhalation (Advair Diskus) Allergies Allergy/AdvReac Type Severity Reaction Status Date / Time crab Allergy Severe Difficulty Verified 12/31/21 14:03 Breathing Fish Containing Products Allergy Severe Difficulty Verified 12/31/21 14:03 Breathing fish derived Allergy Severe Difficulty Verified 12/31/21 14:03 Breathing mussels Allergy Severe Difficulty Verified 12/31/21 14:03 Breathing oyster extract Allergy Severe Difficulty Verified 12/31/21 14:03 Breathing shrimp Allergy Severe Difficulty Verified 12/31/21 14:03 Breathing strawberry Allergy Severe Difficulty Verified 12/31/21 14:03 Breathing PFSH PFSH Medical History (Updated 02/13/22 @ 14:26 by Sherlyn Ornelas DO) Abnormal electrocardiography Atrial fibrillation Breast cancer Coronary artery disease Family history of heart disease Knee arthropathy Lightheadedness Symptomatic bradycardia Surgical History H/O mastectomy History of hysterectomy Family History Other Family history of hypertension Social History (Updated 02/13/22 @ 11:25 by Sarah Rivero RN) Smoking Status: Never smoker alcohol intake: current current occupational status: retired and disabled Travel in the last 8 weeks: Inside the [place] household members: none housing: house caffei
--- NOTE | 2022-02-13 11:21 | ECG_ITS ---
APPROVED REPORT Exam: Resting ECG HR:41 bpm ECG Measurements Heart Rate 41 AXES QRSd 89 QRS -20 QT 478 T 10 QTc 417 Conclusion ATRIAL FIBRILLATION WITH SLOW VENTRICULAR RESPONSE POSSIBLE RIGHT VENTRICULAR CONDUCTION DELAY [RSR (QR) IN V1/V2] MODERATE VOLTAGE CRITERIA FOR LVH, CONSIDER NORMAL VARIANT [MEETS CRITERIA IN ONE OF: R(aVL), S(V1), R(V5), R(V5/V6)+S(V1)] ABNORMAL RHYTHM ECG UNCONFIRMED REPORT Electronically signed by : Aguilar Hatch MD 02/14/2022 21:08:34
[2022-02-13 12:10] LABS: Chloride 105 mmol/L (98-107); Sodium 138 mmol/L (136-145)
[2022-02-13 12:13] LABS: Alanine Aminotransferase 22 U/L (12-78); Albumin Level 3.8 g/dl (3.5-5.0); Albumin/Globulin Ratio 1.4 (1.1-1.8); Alkaline Phosphatase 42 U/L (38-126); Aspartate Amino Transferase 45 U/L (14-36); Bilirubin,Total 0.6 mg/dl (0.2-1.3); Blood Urea Nitrogen 13 mg/dl (7-17); Calcium 8.8 mg/dl (8.4-10.2); Carbon Dioxide 24 mmol/L (22.0-30.0); Creatinine Clearance Estimated 70 mL/min (50-200); Estimated Glomerular Filt Rate 49 ml/min (>60); GFR (African American) 59 ML/MIN (>60); Globulin 2.8 g/dL (1.3-3.2); Glucose 132 mg/dl (74-100); Total Protein,Serum 6.6 g/dl (6.3-8.2)
[2022-02-13 12:14] LABS: Magnesium 1.8 mg/dl (1.6-2.3)
--- NOTE | 2022-02-13 12:15 | PC.NURSE ---
entered pt room to assist pt to the restroom pt sitting up on the side of the bed. pt c/o nausea breathing heavily. Pt then began reporting not feeling well, pt very anxious in nature, when trying to assist pt to get her feet back in the bed pt became lethargic in nature. Called additional staff for help, ER MD entered room and assessed pt. Able to get pt back into bed, monitor attached to pt, Pt HR 43 bp 98/79 Pt more alert and able to get pt calmed down. Pt on zoll monitor per ER MD request as well as monitoring engineer. Will continue to monitor
--- NOTE | 2022-02-13 12:18 | CT_ITS ---
FINAL REPORT CLINICAL HISTORY: headache, vomiting FINDINGS: Axial images of the head were obtained without contrast. Coronal reformatted images were also obtained. This study was performed with techniques to keep radiation doses as low as reasonably achievable (ALARA). Individualized dose reduction techniques using automated exposure control or adjustment of mA and/or kV according to the patient's size were employed. There is generalized age-appropriate atrophy. Periventricular low-attenuation areas are seen consistent with moderate chronic ischemic changes. There is no evidence of intracranial hemorrhage or mass. There is no evidence of acute infarct. There is no evidence of shift of the midline structures. No skull abnormality is seen on the bone window images. IMPRESSION: Atrophy and moderate periventricular chronic ischemic changes. No acute intracranial abnormality identified. Reviewed, Interpreted and Dictated by Brain Gordon III, MD Transcribed by Bhavesh Campo Authenticated and [facility]
[2022-02-13 12:27] LABS: Troponin I < 0.01 ng/ml (0.00-0.034)
[2022-02-13 12:33] LABS: Basophils % 0.4 % (0.1-2.0); Eosinophils # 0.3 K/mm3 (0.0-0.4); Eosinophils % 3.5 % (0.1-12.0); Hematocrit 30.1 % (37.0-47.0); Hemoglobin 9.4 g/dL (12.2-16.2); Lymphocytes # 1.4 K/mm3 (0.7-4.5); Lymphocytes % 16.6 % (10-50); Mean Corpuscular HGB Conc 31.3 g/dL (31.8-35.4); Mean Corpuscular Volume 89.4 fl (81-99); Mean Platelet Volume 8.7 fl (7.4-10.4); Monocytes # 0.4 K/mm3 (0.1-1.0); Monocytes % 4.3 % (1.7-9.3); Neutrophils # 6.4 K/mm3 (1.8-7.8); Neutrophils % 75.3 % (37.0-80.0); Platelet Count 286 K/mm3 (142-424); Red Blood Count 3.37 M/mm3 (4.20-5.40); Red Cell Distribution Width 15.7 % (11.5-17.5); White Blood Count 8.6 K/mm3 (4.8-10.8)
[2022-02-13 12:45] LABS: Thyroid Stimulating Hormone 2.32 uIU/mL (0.465-4.68)
--- NOTE | 2022-02-13 13:17 | PC.NURSE ---
DR. GRANDA SPEAKING WITH DR. JEFFRIES FOR ADMISSION
--- NOTE | 2022-02-13 13:20 | PC.NURSE ---
per dr. hogue he is not pt pcp. Per ER MD we will need to speak with hospitalist for admission of pt.
--- NOTE | 2022-02-13 13:44 | EXP.CARD.CON ---
History of Present Illness History of Present Illness Consult date: 02/13/22 Requesting physician: Sherlyn Ornelas Chief complaint: lightheadedness History of present illness: This is a 72-year-old -[place] female who presented to the emergency department with complaints of lightheadedness and weakness. She states that she woke up this morning and felt very lightheaded and weak. She states that she had to grab onto furniture to steady herself. The patient reports that she took her morning medications and went back to sleep which is very unusual for her. She states she woke up again and her lightheadedness was worse as well as her weakness. She had a little bit of nausea and felt very hot and flushed. She states that when she got up to call her daughter she could barely walk because of how weak she was. She called her daughter and then she then transported her here to [facility] for further evaluation of the lightheadedness and weakness. Upon arrival the patient was found to be in atrial fibrillation with a heart rate of 41 bpm. At times her heart rate has even been in the low 30s when she is standing up since being in the hospital. She states that she still feels pretty lightheaded and weak but it is not as bad as it was when she was at home. She denies any chest pain or pressure. She denies any shortness of breath or edema. She denies any fever, chills, vomiting, diarrhea, PND or orthopnea. She denies any headache. She states that she had been feeling very well until she woke up this morning. [facility] Medical History (Updated 02/13/22 @ 14:11 by Tamiko Pina APRN) Abnormal electrocardiography Atrial fibrillation Breast cancer Coronary artery disease Family history of heart disease Knee arthropathy Lightheadedness Symptomatic bradycardia Surgical History H/O mastectomy History of hysterectomy Family History Other Family history of hypertension Social History (Updated 02/13/22 @ 11:25 by Sarah Rivero RN) Smoking Status: Never smoker alcohol intake: current current occupational status: retired and disabled Travel in the last 8 weeks: Inside the [place] household members: none housing: house caffeine: Yes Review of Systems Review of Systems Review of systems:: pertinent systems reviewed and negative unless documented below Constitutional Constitutional: Reports system reviewed and no additional complaints, except as documented, Denies headache(s) and Reports weakness Eyes Eyes: Reports system reviewed and no additional complaints, except as documented ENT Ears, Nose, Mouth, and Throat: Reports system reviewed and no additional complaints, except as documented, Denies headache(s) and Reports vertigo *Cardiovascular Cardiovascular: Reports system reviewed and no additional complaints, except as documented and Reports lightheadedness *Respiratory Respiratory: Reports system reviewed and no additional complaints, except as documented *Gastrointestinal Gastrointestinal: Reports system reviewed and no additional complaints, except as documented *Genitourinary Genitourinary: Reports system reviewed and no additional complaints, except as documented *Musculoskeletal Musculoskeletal: Reports system reviewed and no additional complaints, except as documented, Denies numbness and Denies tingling Integumentary/Breasts Skin/Breast: Reports system reviewed and no additional complaints, except as documented *Neurologic Neurologic: Reports system reviewed and no additional complaints, except as documented, Denies headache(s), Denies numbness, Denies tingling, Reports vertigo and Reports weakness Psychiatric Psychiatric: Reports system reviewed and no additional complaints, except as documented Endocrine Endocrine: Reports system reviewed and no additional complaints, except as documented Hematol
--- NOTE | 2022-02-13 13:50 | PC.NURSE ---
damaris pinedan at BS
--- NOTE | 2022-02-13 13:50 | PC.NURSE ---
Ulices [employer] AT BEDSIDE
--- NOTE | 2022-02-13 14:21 | PC.NURSE ---
Addendum entered by Cherie Martinez RN 02/13/22 14:30: per dr. hogue to ER on previous conversation Dr. hogue states he does not have a contract with pts insurance Original Note: per ER MD request spoke with pt admission and if she would like dr. hogue to admit her or hospitalist. Pt reports she is fine with the hospitalist. ER MD speaking with hospitalist at this time.
--- NOTE | 2022-02-13 14:30 | PC.NURSE ---
notified care management of admission, spoke with susie
[2022-02-13 14:50] LABS: Coronavirus 19, PCR Not Detected (NotDetected); Influenza A, PCR Not Detected (NotDetected); Influenza B, PCR Not Detected (NotDetected)
--- NOTE | 2022-02-13 15:09 | PC.NURSE ---
hospitalist dr. farias
--- NOTE | 2022-02-13 15:12 | PC.NURSE ---
REPORT GIVEN TO Tyrell COOK RN
--- NOTE | 2022-02-13 15:32 | PC.NURSE ---
patient arrived by stretcher to room from ED
[2022-02-13 15:53] LABS: Troponin I < 0.01 ng/ml (0.00-0.034)
--- NOTE | 2022-02-13 15:54 | EXP.HP ---
History of Present Illness *Admission Date: 02/13/22 *Reason for visit:: Chief complaint: Lightheadedness *History of present illness: This is a 72-year-old female that presents to [facility] emergency department with concerns of lightheadedness that started this morning. Her past medical history is significant for previous episodes of symptomatic bradycardia, atrial fibrillation on chronic anticoagulation, anemia, coronary artery disease status post left heart cath November 2021, hypertension and COPD. She reports this morning on my birthday feeling poorly and characterizing her symptomatology as a spinning room sensation when going from sitting to standing. She characterizes as lightheadedness as well. There is associated nausea but no emesis. She denied retrosternal chest pain, confusion or hallucinations. She reports that she normally manages her own medications and puts them into a weekly dispenser. Every now and then her daughter Manjinder will help her with her medications as well. [facility] Medical History (Updated 02/13/22 @ 14:26 by Sherlyn Ornelas DO) Abnormal electrocardiography Atrial fibrillation Breast cancer Coronary artery disease Family history of heart disease Knee arthropathy Lightheadedness Symptomatic bradycardia Surgical History H/O mastectomy History of hysterectomy Family History Other Family history of hypertension Social History (Updated 02/13/22 @ 11:25 by Sarah Rivero RN) Smoking Status: Never smoker alcohol intake: current current occupational status: retired and disabled Travel in the last 8 weeks: Inside the [place] household members: none housing: house caffeine: Yes Review of Systems Review of Systems Review of systems:: pertinent systems reviewed and negative unless documented below Constitutional Constitutional: Denies frequent falls, Denies headache(s), Reports lethargy and Reports weakness Eyes Eyes: Denies loss of vision and Denies tunnel vision ENT Ears, Nose, Mouth, and Throat: Reports disequilibrium, Denies headache(s) and Reports vertigo *Cardiovascular Cardiovascular: Denies chest pain, Denies chest pain with activity, Denies dyspnea, Denies leg edema and Denies syncope *Respiratory Respiratory: Denies dyspnea and Denies wheezing *Gastrointestinal Gastrointestinal: Reports nausea and Denies vomiting *Musculoskeletal Musculoskeletal: Reports back pain (chronic), Denies numbness and Denies tingling *Neurologic Neurologic: Denies abnormal speech, Denies confusion, Denies convulsions, Reports disequilibrium, Denies frequent falls, Denies headache(s), Denies lack of coordination, Denies loss of vision, Denies memory loss, Denies numbness, Denies syncope, Denies tingling, Reports vertigo and Reports weakness Psychiatric Psychiatric: Denies confusion and Denies memory loss Endocrine Endocrine: Denies cold intolerance, Denies polydipsia, Denies polyphagia and Denies polyuria Hematologic/Lymphatic Hematologic/Lymphatic: Denies easy bleeding and Denies lymphadenopathy Allergic/Immunologic Allergic/Immunologic: Denies wheezing Meds Home Medications and Allergies Home Medications Medication Instructions Recorded Confirmed Type albuterol sulfate 90 mcg/actuation 1 puff inhalation Q4HP PRN 11/19/21 02/13/22 History aerosol inhaler Shortness Of Breath alendronate 35 mg tablet 35 mg PO WEEKLY Osteoporosis 11/19/21 02/13/22 History aspirin 81 mg tablet,delayed 81 mg PO DAILY CAD 11/19/21 02/13/22 History release calcium carbonate 600 mg-vitamin 1 tab PO DAILY Supplement 11/19/21 02/13/22 History D3 5 mcg (200 unit) tablet carvedilol 25 mg tablet 25 mg PO BID Hypertension 11/19/21 02/13/22 History diltiazem HCl 360 mg capsule,24 360 mg PO DAILY Hypertension 11/19/21 02/13/22 History hr,extended release guaifenesin 600 mg tablet, 600 mg
--- NOTE | 2022-02-13 16:09 | HMH.PHAINT1 ---
Pharmacy Intervention Comments: Home medication reconciliation completed using outpatient pharmacy fill history.
--- NOTE | 2022-02-13 19:24 | PC.NURSE ---
NEW ADMIT THIS SHIFT, SHE TOLERATED SUPPER WELL, HAS NOT REQUIRED O2 SUPPORT. SAYS THAT SHE STILL FEELS A LITTLE DIZZY WHEN SHE RISES. NO OTHER COMPLAINTS SINCE ARRIVING TO FLOOR.
[2022-02-13 22:08] LABS: POC Glucose,Bedside 119 (70-110)
[2022-02-13 23:03] LABS: Troponin I < 0.01 ng/ml (0.00-0.034)
[2022-02-14] VITALS: BP 105/54; PULSE 67; PULSE 70; RESP 18; TEMP 37; O2SAT 100
[2022-02-14 04:00] VITALS: BP 117/68; PULSE 74; RESP 18; TEMP 37.1; O2SAT 99
[2022-02-14 04:39] VITALS: BMI 40.1
[2022-02-14 05:00] VITALS: PULSE 80
--- NOTE | 2022-02-14 05:24 | PC.NURSE ---
NO ACUTE CHANGES SINCE PREVIOUS ASSESSMENT. PT HAS RESTED WELL OVER NIGHT. LUNG SOUNDS ARE CLEAR. AMBULATING TO THE BATHROOM WITH STANDBY ASSIST. NO C/O DIZZINESS OR LIGHTHEADEDNESS. PT HAS REMAINED NSR ON TELE. CALL GODOY WITHIN REACH.
[2022-02-14 05:47] LABS: POC Glucose,Bedside 103 (70-110)
[2022-02-14 06:47] LABS: Basophils % 0.4 % (0.1-2.0); Eosinophils # 0.5 K/mm3 (0.0-0.4); Eosinophils % 6.8 % (0.1-12.0); Hematocrit 26.3 % (37.0-47.0); Lymphocytes # 1.4 K/mm3 (0.7-4.5); Lymphocytes % 21.1 % (10-50); Mean Corpuscular HGB Conc 31.3 g/dL (31.8-35.4); Mean Corpuscular Hemoglobin 28.3 pg (27.0-31.2); Mean Corpuscular Volume 90.6 fl (81-99); Mean Platelet Volume 9.3 fl (7.4-10.4); Monocytes # 0.5 K/mm3 (0.1-1.0); Monocytes % 7.3 % (1.7-9.3); Neutrophils # 4.4 K/mm3 (1.8-7.8); Neutrophils % 64.5 % (37.0-80.0); Platelet Count 196 K/mm3 (142-424); Red Cell Distribution Width 15.6 % (11.5-17.5); White Blood Count 6.8 K/mm3 (4.8-10.8)
[2022-02-14 06:56] LABS: Hemoglobin 8.3 g/dL (12.2-16.2)
[2022-02-14 06:57] LABS: Chloride 112 mmol/L (98-107); Potassium 4.3 mmoL/L (3.5-5.1); Sodium 142 mmol/L (136-145)
[2022-02-14 07:00] LABS: Anion Gap 11.3 mEq/L (5-15); Blood Urea Nitrogen 14 mg/dl (7-17); Carbon Dioxide 23 mmol/L (22.0-30.0); Creatinine Clearance Estimated 33 mL/min (50-200); Estimated Glomerular Filt Rate 44 ml/min (>60); GFR (African American) 53 ML/MIN (>60); Glucose 90 mg/dl (74-100); Iron 153 ug/dL (37-170)
[2022-02-14 07:10] LABS: Total Iron Binding Capacity 320 ug/dL (265-497)
[2022-02-14 07:24] LABS: Hemoglobin A1C 5.3 % (4.0-6.0)
[2022-02-14 07:31] LABS: Thyroid Stimulating Hormone 1.93 uIU/mL (0.465-4.68)
[2022-02-14 08:00] VITALS: BP 140/84; PULSE 63; PULSE 80; RESP 16; TEMP 37.1; O2SAT 98
[2022-02-14 09:00] LABS: Vitamin B12 710 pg/mL (239-931)
--- NOTE | 2022-02-14 11:11 | EXP.CARD.PN ---
Subjective Subjective Date: 02/14/22 Time: 10:30 Principal diagnosis: symptomatic bradycardia Interval history: This is a 72-year-old -[place]ux[place] female who presented to the emergency department with complaints of lightheadedness and weakness. She was found to have symptomatic bradycardia with a heart rate in the 40s. Her heart rate did get down into the 30s at times when she was standing up and walking. The patient stated that prior to yesterday she felt fine and then woke up yesterday morning with a profound lightheadedness and weakness. She was given IV glucagon for her bradycardia and her heart rate is now in the 80s this morning. She denies any chest pain or pressure. She denies any shortness of breath or edema. She denies any fever, chills, nausea, vomiting, diarrhea, PND or orthopnea. She denies any headache. She states that her lightheadedness has resolved. She states that she feels back to her normal strength and no longer has that profound weakness and she is feeling much better today. Exam Data for Last 24 hours Vital signs and Labs for Last 24 Hours: Temp Pulse Resp BP Pulse Ox 98.7 F 63 16 140/84 98 02/14/22 08:00 02/14/22 08:00 02/14/22 08:00 02/14/22 08:00 02/14/22 08:00 Laboratory Results - last 24 hr 02/13/22 11:57: Sodium 138, Potassium 5.0, Chloride 105, Carbon Dioxide 24, Anion Gap 14.0, BUN 13, Creatinine 1.10 H, Estimated Creat Clear 70, Estimated GFR 49 L, Est GFR ( Amer) 59, Glucose 132 H, Calcium 8.8, Magnesium 1.8, Total Bilirubin 0.6, AST 45 H, ALT 22, Alkaline Phosphatase 42, Troponin I < 0.01, Total Protein 6.6, Albumin 3.8, Globulin 2.8, Albumin/Globulin Ratio 1.4, TSH 2.32 02/13/22 12:15: WBC 8.6, RBC 3.37 L, Hgb 9.4 L, Hct 30.1 L, MCV 89.4, MCH 28.0, MCHC 31.3 L, RDW 15.7, Plt Count 286, MPV 8.7, Neut % (Auto) 75.3, Lymph % (Auto) 16.6, [place] % (Auto) 4.3, Eos % (Auto) 3.5, Baso % (Auto) 0.4, Neut # (Auto) 6.4, Lymph # (Auto) 1.4, [place] # (Auto) 0.4, Eos # (Auto) 0.3, Baso # (Auto) 0.0 02/13/22 14:43: SARS-CoV-2 (PCR) Not detected, Influenza A Untype (PCR) Not detected, Influenza Type B (PCR) Not detected 02/13/22 15:15: Troponin I < 0.01 02/13/22 22:01: POC Glucose 119 H 02/13/22 22:07: Troponin I < 0.01 02/14/22 05:32: POC Glucose 103 02/14/22 06:13: WBC 6.8, RBC 2.90 L, Hgb 8.3 L D, Hct 26.3 L, MCV 90.6, MCH 28.3, MCHC 31.3 L, RDW 15.6, Plt Count 196 D, MPV 9.3, Neut % (Auto) 64.5, Lymph % (Auto) 21.1, [place] % (Auto) 7.3, Eos % (Auto) 6.8, Baso % (Auto) 0.4, Neut # (Auto) 4.4, Lymph # (Auto) 1.4, [place] # (Auto) 0.5, Eos # (Auto) 0.5 H, Baso # (Auto) 0.0 02/14/22 06:13: Sodium 142, Potassium 4.3, Chloride 112 H, Carbon Dioxide 23, Anion Gap 11.3, BUN 14, Creatinine 1.20 H, Estimated Creat Clear 33, Estimated GFR 44 L, Est GFR ( Amer) 53 L, Glucose 90 D, Calcium 8.0 L, Magnesium 2.0 D, Iron 153, TIBC 320, Iron Saturation 47.91903, TSH 1.93 02/14/22 06:13: Hemoglobin A1c 5.3 02/14/22 06:13: Vitamin B12 710 I & O for Last 24 hours: Intake & Output 02/11/22 02/12/22 02/13/22 02/14/22 23:59 23:59 23:59 23:59 Intake Total 240 / 240 1606 / 1606 Output Total 0 / 0 350 / 350 Balance 240 / 240 1256 / 1256 Weight 218 lb 7 oz 226 lb 6 oz Narrative: Telemetry strip shows sinus rhythm with a rate of 73 bpm. Constitutional Constitutional: no acute distress, average body habitus and obese *Routine HEENT Exam Head: Present normocephalic and atraumatic ENT: Present mucous membranes moist *Routine Neck Exam Neck: Present supple, full ROM and normal carotid upstroke; Absent JVD, carotid bruit or lymphadenopathy *Routine Respiratory Exam Respiratory: Present CTA bilaterally, normal respiratory effort, able to speak in complete sentences and symmetric chest movement *Routine Cardiovascular Exam Cardiovascular: Present RRR, Normal S1 and Normal S2; Absent murmur or gallop *Routine Abdominal Exam Abdominal: Present soft and normoactive bowel sounds; Absent tenderness, distended or
--- NOTE | 2022-02-14 11:52 | HMH.PTEV ---
Physical Therapy Evaluation Rehab PT IP Evaluation Start: 02/13/22 15:34 Freq: ONCE Status: Active Protocol: Document 02/14/22 10:05 [place] (Rec: 02/14/22 11:52 PHOJAVIER [id number]) Subjective/History History History 72 yoaaf adm to [facility] with dizziness, possible orthostasis, and bradycardia. She reports feeling much better this am, lives alone, no steps to enter the home and does not use AD. Subjective Subjective Pt has no c/o at all this am. Rehab PT IP Eval Objective Appearance Patient Behavior Appropriate Patient Orientation Person,Place,Time Difficulty following instructions none Speech Pattern Clear Ambulation Patient Able to Ambulate Yes Ambulation Observation IP General Gait Pattern Observation No Deviations/Normal Ambulation Distance (feet) 30 Ambulation Assistive Device None Ambulation Ability Independent Balance Ability to Arise Able, w/o using arms Sitting Balance Steady, safe Standing Balance Narrow stance w/o support Dynamic Sitting Balance Ability Normal Dynamic Standing Balance Ability Normal Transfers Bed Transfer Ability Independent Chair Transfer Ability Independent Sit to Stand Bed Transfer Ability Independent Sit to Stand Chair Transfer Ability Independent ROM All Extremities PT ROM Status WFL MMT All Extremities PT MMT WFL Rehab PT IP prob,goals,plan Problems Date of Evaluation: 02/14/22 Discharge Plan PT Discharge Plan Pt is appropriate to return home once medically stable. No current inpatient therapy needs. G -code Required No Eval Complexity Eval Charge Codes 81416 - Moderate Complexity PHYSICIAN CERTIFICATION: I certify the specified therapy services for Bernie Hurst are required, authorized, and reviewed every 30 days.
[2022-02-14 12:00] VITALS: BP 151/79; PULSE 73; RESP 16; TEMP 36.6; O2SAT 99
--- NOTE | 2022-02-14 14:01 | EXP.DC.SUM ---
General Admission date:: 02/13/22 Discharge date: 02/14/22 HPI HPI HPI: This is a 72-year-old female that presents to [facility] emergency department with concerns of lightheadedness that started this morning. Her past medical history is significant for previous episodes of symptomatic bradycardia, atrial fibrillation on chronic anticoagulation, anemia, coronary artery disease status post left heart cath November 2021, hypertension and COPD. She reports this morning on my birthday feeling poorly and characterizing her symptomatology as a spinning room sensation when going from sitting to standing. She characterizes as lightheadedness as well. There is associated nausea but no emesis. She denied retrosternal chest pain, confusion or hallucinations. She reports that she normally manages her own medications and puts them into a weekly dispenser. Every now and then her daughter Manjinder will help her with her medications as well. Hospital Course Hospital Course Hospital Course: The patient was admitted to the medical floor on telemetry with cardiology consult. Her heart rhythm identified normal sinus rhythm in the 70s and 80s after her glucagon and fluid administration in the ED. Cardiology recommended discontinuation of her current beta-rosanne therapy. Her laboratory studies and inflammatory markers were trended and identified stability. We have recommended routine follow-up with her PCP for outpatient BMP and CBC. Her chronic anemia has been supplemented with iron and vitamin C therapy. A head CT identified no acute disease. The patient identified improvement. Her daughter Melia was at bedside on day of discharge and supported her mothers identified improvement. We have recommended review of medication distention for appropriate dosing. She should follow-up with her PCP in 3 to 5 days and her fuel attendant as scheduled. Exam Data for Last 24 hours Vital signs and Labs for Last 24 Hours: Temp Pulse Resp BP Pulse Ox 97.8 F 73 16 151/79 H 99 02/14/22 12:00 02/14/22 12:00 02/14/22 12:00 02/14/22 12:00 02/14/22 12:00 Laboratory Results - last 24 hr 02/13/22 14:43: SARS-CoV-2 (PCR) Not detected, Influenza A Untype (PCR) Not detected, Influenza Type B (PCR) Not detected 02/13/22 15:15: Troponin I < 0.01 02/13/22 22:01: POC Glucose 119 H 02/13/22 22:07: Troponin I < 0.01 02/14/22 05:32: POC Glucose 103 02/14/22 06:13: WBC 6.8, RBC 2.90 L, Hgb 8.3 L D, Hct 26.3 L, MCV 90.6, MCH 28.3, MCHC 31.3 L, RDW 15.6, Plt Count 196 D, MPV 9.3, Neut % (Auto) 64.5, Lymph % (Auto) 21.1, [place] % (Auto) 7.3, Eos % (Auto) 6.8, Baso % (Auto) 0.4, Neut # (Auto) 4.4, Lymph # (Auto) 1.4, [place] # (Auto) 0.5, Eos # (Auto) 0.5 H, Baso # (Auto) 0.0 02/14/22 06:13: Sodium 142, Potassium 4.3, Chloride 112 H, Carbon Dioxide 23, Anion Gap 11.3, BUN 14, Creatinine 1.20 H, Estimated Creat Clear 33, Estimated GFR 44 L, Est GFR ( Amer) 53 L, Glucose 90 D, Calcium 8.0 L, Magnesium 2.0 D, Iron 153, TIBC 320, Iron Saturation 47.44218, TSH 1.93 02/14/22 06:13: Hemoglobin A1c 5.3 02/14/22 06:13: Vitamin B12 710 I & O for Last 24 hours: Intake & Output 02/11/22 02/12/22 02/13/22 02/14/22 23:59 23:59 23:59 23:59 Intake Total 240 / 240 1606 / 1606 Output Total 0 / 0 350 / 350 Balance 240 / 240 1256 / 1256 Weight 99.082 kg 102.682 kg Constitutional Constitutional: no acute distress and obese *Routine HEENT Exam Head: Present normocephalic and atraumatic Eye: Present EOMI and PERRL ENT: Present mucous membranes moist *Routine Neck Exam Neck: Present supple and trachea midline; Absent JVD, lymphadenopathy or thyromegaly *Routine Respiratory Exam Respiratory: Present rhonchi, normal respiratory effort and symmetric chest movement; Absent respiratory distress *Routine Cardiovascular Exam Cardiovascular: Present RRR; Absent murmur *Routine Abdominal Exam Abdominal: Present soft and normoactive bowel sounds *Routine Extremi
--- NOTE | 2022-02-15 14:00 | CARE MANAGER ---
Spoke with patient daughter for post-op phone interview, she states that patient is doing well and has no issues at this time.
== END 2022-02-14 15:20 | disposition home or self-care (01) ==
LOC: ER 14:26 → 2ND 15:24
PROVIDERS: Admitting Provider Family Medicine; Emergency Provider Emergency Medicine; PCP Family Medicine; Visit Provider Family Medicine
DX: I48.0 Paroxysmal atrial fibrillation (principal); R00.1 Bradycardia, unspecified; I25.10 Atherosclerotic heart disease of native coronary artery without angina pectoris; E78.2 Mixed hyperlipidemia; I10 Essential (primary) hypertension; Z79.899 Other long term (current) drug therapy; J44.9 Chronic obstructive pulmonary disease, unspecified; Z79.02 Long term (current) use of antithrombotics/antiplatelets; Z20.822 Contact with and (suspected) exposure to COVID-19
CPT/HCPCS: G0378; 36415; 70450; 71045; 80048; 80053; 82607; 82962; 83036; 83540; 83550; 83735; 84443; 84484; 85025; 93005; 97162; 99285; C9803; J1610; J2405; U0003; U0005

== ENCOUNTER 2024-06-24 07:38 | Outpatient (CLI) | payer MEDICARE, MEDICAID, SELFPAY ==
--- NOTE | 2024-06-24 | CA_ITS ---
APPROVED REPORT Exam: Pharmacologic Technologist: Ophelia Horne Ht: 5 ft 3 in Wt: 218 lbs BSA: 2.01 m2 HR: 77 bpm BP: 194/85 mmHg Medical History Medical History: HTN, ICD Allergies: strawberry,crab,fish,mussels,oyster,shrimp Cardiac Risk Factors: HTN, Hyperlipidemia, FHX of CAD Stress Test Details Reason for pharmacologic stress test: physical limitation. HR Resting HR: 77 bpm Max Heart Rate (APMHR): 144.670994 bpm Max HR Achieved: 101 bpm Target HR (85% APMHR): 122.886206 bpm % of APMHR: 70.14 Recovery HR: 89 bpm BP Resting BP: 194.0/85.0 mmHg Max BP: 194.0/85.0 mmHg Recovery BP: 189.0/84.0 mmHg ECG Stress ECG Conclusion Did not take Bp meds this morning. Soa after lexiscan infusion. No CP. PVC's noted. Unremarkable due to lexiscan Electronically signed by : Marla Thomas MD 06/24/2024 14:13:02
--- NOTE | 2024-06-24 07:43 | NM_ITS ---
APPROVED REPORT Exam: Nuclear Stress Test Indication: htn, fm hx, a-fib, badycardiasob, fatigue Patient Location: Outpatient Stress Tech: Ophelia Horne [place] Tech:Sarah RamsaySUNG RT(R)(N) Ht: 5 ft 3 in Wt: 218 lbs Bra Size: d HR: 89 bpm BP: 194/85 mmHg BSA: 2.01 m2 TID: 1.18 BMI: 38.6 History: htn, fm hx, a-fib, badycardiasob, fatigue pt could not lay on stomach for prone images Procedure: Patient received 0.4 mg of intravenous AdenosineLexiscan, resting heart rate 89 bpm, resting blood pressure 194/85 mmHg, with Lexiscan maximum heart rate achieved was 101 bpm which is % of the maximum predicted heart rate and blood pressure was 191/87 mmHg. With Lexiscan, patient denied any complaint of chest pain. Cardiac Stress and Resting SPECT Images: Cardiac Stress and Resting SPECT images were obtained using technetium 99m Myoview 32.6 mCi stress and 10.99 mCi at rest. The patient could not lie on her abdomen. Therefore, prone stress imaging could not be performed. This may affect the diagnostic interpretation of the study findings. Resting and stress imaging in supine position demonstrate no evidence of fixed or reversible perfusion defects. Gated imaging demonstrates normal global and regional LV systolic function. LVEF is calculated at 58%. Of note, the right ventricle appears dilated. Correlation with new or recent TTE is suggested. Conclusion: No evidence of fixed or reversible perfusion defects. Gated imaging demonstrates normal global and regional LV systolic function. LVEF is calculated at 58%. Of note, the right ventricle appears dilated. Correlation with new or recent TTE is suggested. Electronically signed by : Marla Thomas MD 06/24/2024 14:09:16
[2024-06-24] MEDS: REGADENOSON 0.4MG/5ML SYRINGE 0.4 MG IV (10:35)
[2024-06-24] MEDS: ISOTOPE MYOVIEW (PER STUDY) 1 DOSE IV (10:35)
[2024-06-24] MEDS: SODIUM CHLORIDE 0.9% 10ML SYR (RAD ONLY) 10 ML IV ×2 (10:35)
== END 2024-06-24 23:59 | disposition home or self-care (01) ==
LOC: RAD 07:39
PROVIDERS: PCP Family Medicine; Visit Provider Nurse Practitioner
DX: I25.10 Atherosclerotic heart disease of native coronary artery without angina pectoris (principal); R06.00 Dyspnea, unspecified; I10 Essential (primary) hypertension; I48.0 Paroxysmal atrial fibrillation; E78.2 Mixed hyperlipidemia; Z82.49 Family history of ischemic heart disease and other diseases of the circulatory system
CPT/HCPCS: 78452; 93017; 93018; A9502; J2785